=== PATIENT | male | born 1930 | race Caucasian/White ===

== ENCOUNTER 2016-04-16 14:11 | Observation (INO) | payer OTHER ==
[~2016-04-16] VITALS: Ht 177.8 cm; Wt 86.0 kg
[~2016-04-16 14:11] MED LIST: AMBIEN CR12.5 MG PO; ASPIRIN81 M2 PO; CARDURA4 MG PO; CORTIZONE-10 PL57 GM TP; COUMADIN5 MG PO; DAILY VITAMIN1 EAC8 PO; DOXAZOSIN MESYLA4 MG PO; FINASTERIDE5 MG PO; FLUORITAB1 MG PO; IRON18 MG PO; IRON325 M1 PO; MEDROL DOSEPAK4 MG PO; MULTIVITAMIN1 EAC2 PO; PROSCAR5 MG PO; VITAMIN D1000 UNIT PO; WARFARIN SODIU7.5 MG PO; WARFARIN SODIUM5 MG PO; ZOLOFT100 MG PO; ZOLOFT50 MG PO; ZYRTEC10 M2 PO
[2016-04-16 16:44] LABS: EOSINOPHIL (%) 1.4 % (0-5); EOSINOPHIL COUNT 0.1 K/uL (0-0.3); HEMATOCRIT 38.1 % (38.0-50.0); IMMATURE GRANULOCYTE (%) 0.1 % (0.0-0.7); IMMATURE GRANULOCYTE COUNT 0.1 K/uL; LYMPHOCYTE COUNT 0.6 K/uL (1.0-2.8); MCH 32.3 PG (29.0-34.0); MCHC 34.4 G/DL (30.0-36.0); MCV 94.1 FL (86-99); MEAN PLAT.VOLUME 10.4 uM^3 (9.0-12.4); MONOCYTE (%) 4.3 % (3-12); MONOCYTE COUNT 0.4 K/uL (0-0.8); NEUTROPHIL (%) 86.6 % (45-76); NEUTROPHIL COUNT 7.2 K/uL (1.8-6.4); PLATELET COUNT 91 K/uL (156-360); RBC DIS.WIDTH-CV 12.9 % (11.8-14.6); RED BLOOD COUNT 4.05 M/uL (4.00-5.50); WHITE BLOOD COUNT 8.3 K/uL (4.1-10.2)
[2016-04-16 16:56] LABS: CHLORIDE 108 mEq/L (99-109); POTASSIUM 4.3 mEq/L (3.7-5.4); SODIUM 140 mEq/L (136-147)
[2016-04-16 16:59] LABS: GLUCOSE 103 mg/dL (70-99)
[2016-04-16 17:00] LABS: ANION GAP 6 MEQ/L (2-14)
[2016-04-16 17:01] LABS: TOTAL BILIRUBIN 1.1 mg/dL (0.0-1.0)
[2016-04-16 17:02] LABS: ALKALINE PHOSPHATASE 51 IU/L (3-129); GFR ESTIMATE (CALCULATED) 34 mL/min/
[2016-04-16 17:03] LABS: UREA NITROGEN (BUN) 28 mg/dL (9-23)
[2016-04-16 17:05] LABS: TROP-I INTERPRETATION NEGATIVE; TROPONIN-I 0.01 ng/mL (0.0-0.30)
[2016-04-16] MEDS ORDERED: ASPIR 8181 M1 PO (20:36)
[2016-04-16] MEDS ORDERED: ALFUZOSIN HCL10 MG PO (20:37)
[2016-04-16] MEDS ORDERED: DAILY VITAMIN1 EAC4 PO (20:37)
[2016-04-16 21:19] LABS: ADD MIUA? YES; BILIRUBIN NEGATIVE; BLOOD SMALL; COLOR YELLOW ((YELLOW)); GLUCOSE (STRIP) NEGATIVE; KETONES NEGATIVE; LEUKOCYTES SMALL; NITRITE NEGATIVE; PROTEIN (STRIP) NEGATIVE; SPECIFIC GRAVITY 1.018 (1.000-1.030); UROBILINOGEN 0.2 MG/DL (0.2-1.0)
[2016-04-16 21:33] LABS: AMORPHOUS URATES CRYSTALS FEW; BACTERIA RARE /HPF; CASTS PRESENT /LPF; CRYSTALS PRESENT; EPITHELIAL CELLS NONE SEEN /HPF; HYALINE CASTS 0-5 /LPF; MUCUS TRACE /LPF; RED BLOOD CELLS 0-5 /HPF (0-5); WHITE BLOOD CELLS 20-30 /HPF (0-5)
[2016-04-16 22:39] VITALS: BP 129/81
[2016-04-16 23:27] LABS: TROP-I INTERPRETATION NEGATIVE; TROPONIN-I 0.02 ng/mL (0.0-0.30)
[2016-04-17 00:49] LABS: INTER. NORMALIZED RATIO 2.2; PROTHROMBIN TIME 23.4 (9.2-11.2)
[2016-04-17 05:26] VITALS: BP 113/64
[2016-04-17 08:40] LABS: ALKALINE PHOSPHATASE 39 IU/L (3-129); ANION GAP 5 MEQ/L (2-14); CHLORIDE 111 MEQ/L (99-109); DIRECT BILIRUBIN 0.2 mg/dL (0.0-0.3); GFR ESTIMATE (CALCULATED) 38 mL/min/; GLUCOSE 91 mg/dL (70-99); POTASSIUM 4.8 MEQ/L (3.7-5.4); SAMPLE HEMOLYSIS CHECK 2; SAMPLE ICTERIC CHECK 0; SAMPLE LIPEMIA CHECK 0; SODIUM 138 MEQ/L (136-147); TOTAL BILIRUBIN 1.1 MG/DL (0.0-1.0); UREA NITROGEN (BUN) 22 mg/dL (9-23)
[2016-04-17 08:43] LABS: TROP-I INTERPRETATION NEGATIVE; TROPONIN-I < 0.01 ng/mL (0.0-0.30)
[2016-04-17 08:52] LABS: EOSINOPHIL (%) 2.2 % (0-5); EOSINOPHIL COUNT 0.1 K/uL (0-0.3); HEMATOCRIT 34.7 % (38.0-50.0); LYMPHOCYTE COUNT 1.1 K/uL (1.0-2.8); MCH 32.9 PG (29.0-34.0); MCHC 34.6 G/DL (30.0-36.0); MCV 95.1 FL (86-99); MEAN PLAT.VOLUME 11.4 uM^3 (9.0-12.4); MONOCYTE (%) 6.5 % (3-12); MONOCYTE COUNT 0.3 K/uL (0-0.8); NEUTROPHIL (%) 69.9 % (45-76); NEUTROPHIL COUNT 3.6 K/uL (1.8-6.4); PLATELET COUNT 78 K/uL (156-360); RBC DIS.WIDTH-CV 13.2 % (11.8-14.6); RBC DIS.WIDTH-SD 45.9 % (39-53); RED BLOOD COUNT 3.65 M/uL (4.00-5.50)
[2016-04-17 08:55] LABS: WHITE BLOOD COUNT 5.1 K/uL (4.1-10.2)
[2016-04-17 09:38] VITALS: BP 98/55
[2016-04-17 12:00] VITALS: BP 142/73
[2016-04-17 14:37] LABS: INTER. NORMALIZED RATIO 2.7; PROTHROMBIN TIME 28.1 (9.2-11.2)
[2016-04-17 16:19] VITALS: BP 1309/72
[2016-04-17 19:00] VITALS: BP 146/73
[2016-04-18 00:03] VITALS: BP 146/77
[2016-04-18 04:17] VITALS: BP 107/58
[2016-04-18 07:17] LABS: INTER. NORMALIZED RATIO 2.9; PROTHROMBIN TIME 30.5 (9.2-11.2)
[2016-04-18] MEDS ORDERED: COUMADIN2 MG PO (09:22)
[2016-04-18 09:27] VITALS: BP 137/77
[2016-04-18 10:30] LABS: HEMATOCRIT 36.8 % (38.0-50.0); MCH 32.6 PG (29.0-34.0); MCHC 34.5 G/DL (30.0-36.0); MCV 94.6 FL (86-99); MEAN PLAT.VOLUME 11.8 uM^3 (9.0-12.4); PLATELET COUNT 97 K/uL (156-360); RBC DIS.WIDTH-SD 44.9 % (39-53); RED BLOOD COUNT 3.89 M/uL (4.00-5.50); WHITE BLOOD COUNT 6.2 K/uL (4.1-10.2)
[2016-04-18 10:53] LABS: ALKALINE PHOSPHATASE 36 IU/L (3-129); ANION GAP 7 MEQ/L (2-14); CHLORIDE 108 MEQ/L (99-109); GFR ESTIMATE (CALCULATED) 41 mL/min/; SAMPLE HEMOLYSIS CHECK 0; SAMPLE ICTERIC CHECK 0; SAMPLE LIPEMIA CHECK 0; SODIUM 140 MEQ/L (136-147); UREA NITROGEN (BUN) 24 mg/dL (9-23)
[2016-04-18 11:57] LABS: GLUCOSE 114 mg/dL (70-99); TOTAL BILIRUBIN 0.6 MG/DL (0.0-1.0)
[2016-04-18 12:43] VITALS: BP 142/76
[2016-04-18] MEDS ORDERED: CIPRO250 MG PO (12:59)
== END 2016-04-18 15:52 | disposition home or self-care (01) ==
LOC: EME → EDBD 14:11 → EME 14:11 → EDOF 20:46 → 5WEST 20:46 → EDOF 20:46 → 5WEST 22:09
PROVIDERS: Emergency Medicine; Hospitalist; Internal Medicine; Physician Assistant
DX: E86.0 Dehydration (principal); R55 Syncope and collapse; N39.0 Urinary tract infection, site not specified; N18.3 Chronic kidney disease, stage 3 (moderate); D69.6 Thrombocytopenia, unspecified; Z86.711 Personal history of pulmonary embolism; R53.1 Weakness; R26.81 Unsteadiness on feet; Z87.891 Personal history of nicotine dependence; Z79.01 Long term (current) use of anticoagulants; Z79.82 Long term (current) use of aspirin
CPT/HCPCS: 70450; 71010; 80048; 80053; 80076; 81003; 84484; 85025; 85027; 85610; 93005; 99281; 99285; G0378; J0696; J7030; J7050

== ENCOUNTER 2016-10-05 17:08 | Emergency (ER) | payer OTHER ==
[~2016-10-05] VITALS: Ht 177.8 cm; Wt 83.3 kg
[~2016-10-05 17:08] MED LIST changes: +ALFUZOSIN HCL10 MG PO; +ASPIR 8181 M1 PO; +CIPRO250 MG PO; +COUMADIN2 MG PO; +DAILY VITAMIN1 EAC4 PO
[2016-10-05 19:23] LABS: HEMATOCRIT 40.6 % (38.0-50.0); MCH 32.3 PG (29.0-34.0); MCV 92.3 FL (86-99); MEAN PLAT.VOLUME 11.3 uM^3 (9.0-12.4); PLATELET COUNT 116 K/uL (156-360); RBC DIS.WIDTH-SD 43.3 % (39-53); WHITE BLOOD COUNT 7.5 K/uL (4.1-10.2)
[2016-10-05 19:25] LABS: CARBON DIOXIDE (BICARBONATE) 30.2 MEQ/L (20-31)
[2016-10-05 19:31] LABS: D-DIMER ELISA < 150.00 ng/mLDDU (<230)
[2016-10-05 19:35] LABS: CHLORIDE 107 mEq/L (99-109); SODIUM 142 mEq/L (136-147)
[2016-10-05 19:37] LABS: GLUCOSE 125 mg/dL (70-99)
[2016-10-05 19:39] LABS: ANION GAP 9 MEQ/L (2-14)
[2016-10-05 19:41] LABS: GFR ESTIMATE (CALCULATED) 34 mL/min/
[2016-10-05 19:42] LABS: UREA NITROGEN (BUN) 18 mg/dL (9-23)
[2016-10-05 19:45] LABS: TROP-I INTERPRETATION NEGATIVE; TROPONIN-I < 0.01 ng/mL (0.0-0.30)
[2016-10-05] MEDS ORDERED: PROVENTIL HFA6.7 GM IH (21:32)
[2016-10-05] MEDS ORDERED: PREDNISONE20 MG PO (21:32)
[2016-10-05 22:44] VITALS: BP 151/84
== END 2016-10-05 22:45 | disposition home or self-care (01) ==
LOC: EME 17:08
PROVIDERS: Emergency Medicine
DX: J45.909 Unspecified asthma, uncomplicated (principal); G47.30 Sleep apnea, unspecified; K21.9 Gastro-esophageal reflux disease without esophagitis; Z86.711 Personal history of pulmonary embolism; Z87.442 Personal history of urinary calculi; Z85.038 Personal history of other malignant neoplasm of large intestine; Z79.82 Long term (current) use of aspirin; Z79.01 Long term (current) use of anticoagulants; Z87.891 Personal history of nicotine dependence
CPT/HCPCS: 71020; 80048; 82803; 83605; 83880; 84484; 85027; 85379; 87040; 93005; 94640; 99281; 99284; J7512

== ENCOUNTER 2016-10-23 21:05 | Emergency (ER) | payer OTHER ==
[~2016-10-23] VITALS: Ht 172.7 cm; Wt 83.3 kg
[~2016-10-23 21:05] MED LIST changes: +PREDNISONE20 MG PO; +PROVENTIL HFA6.7 GM IH
[2016-10-23 23:05] LABS: ADD MIUA? YES; BILIRUBIN NEGATIVE; BLOOD LARGE; GLUCOSE (STRIP) 50; KETONES NEGATIVE; LEUKOCYTES NEGATIVE; NITRITE NEGATIVE; PROTEIN (STRIP) 100; UROBILINOGEN 0.2 MG/DL (0.2-1.0)
[2016-10-23 23:07] LABS: COLOR RED ((YELLOW))
[2016-10-23 23:08] LABS: RED BLOOD CELLS TNTC /HPF (0-5); UCUL ADDED? YES
[2016-10-24] LABS: CHLORIDE 109 mEq/L (99-109); POTASSIUM 4.3 mEq/L (3.7-5.4); SODIUM 142 mEq/L (136-147)
[2016-10-24 00:02] LABS: GLUCOSE 105 mg/dL (70-99)
[2016-10-24 00:03] LABS: ANION GAP 9 MEQ/L (2-14)
[2016-10-24 00:06] LABS: GFR ESTIMATE (CALCULATED) 36 mL/min/
[2016-10-24 00:07] LABS: UREA NITROGEN (BUN) 19 mg/dL (9-23)
[2016-10-24 00:16] LABS: HEMATOCRIT 35.1 % (38.0-50.0); MCH 32.4 PG (29.0-34.0); MCHC 34.8 G/DL (30.0-36.0); MCV 93.4 FL (86-99); RBC DIS.WIDTH-CV 13.2 % (11.8-14.6); RED BLOOD COUNT 3.76 M/uL (4.00-5.50); WHITE BLOOD COUNT 8.4 K/uL (4.1-10.2)
[2016-10-24 00:58] LABS: PLAT.SUFFICIENCY DECREASED; PLATELET CLUMPS PRESENT - PLATELET COUNTS APPEARS DECREASED
[2016-10-24] MEDS ORDERED: KEFLEX500 MG PO (01:32)
[2016-10-24 02:31] VITALS: BP 145/84
== END 2016-10-24 02:31 | disposition home or self-care (01) ==
LOC: EME 21:05
PROVIDERS: Emergency Medicine
DX: N39.0 Urinary tract infection, site not specified (principal); N28.9 Disorder of kidney and ureter, unspecified; N40.0 Benign prostatic hyperplasia without lower urinary tract symptoms; Z87.442 Personal history of urinary calculi; Z79.01 Long term (current) use of anticoagulants; Z85.038 Personal history of other malignant neoplasm of large intestine; Z87.891 Personal history of nicotine dependence
CPT/HCPCS: 80048; 81003; 85027; 87086; 99281; 99285

== ENCOUNTER 2016-10-24 05:23 | Emergency (ER) | payer OTHER ==
[~2016-10-24] VITALS: Ht 177.8 cm; Wt 89.1 kg
[~2016-10-24 05:23] MED LIST changes: +KEFLEX500 MG PO
[2016-10-24 08:49] LABS: EOSINOPHIL (%) 1.7 % (0-5); EOSINOPHIL COUNT 0.2 K/uL (0-0.3); HEMATOCRIT 40.7 % (38.0-50.0); IMMATURE GRANULOCYTE (%) 0.3 % (0.0-0.7); INSTRUMENT ABS NEUTROPHIL CT 7.8 K/uL; LYMPHOCYTE COUNT 1.7 K/uL (1.0-2.8); MCH 31.9 PG (29.0-34.0); MCHC 34.2 G/DL (30.0-36.0); MCV 93.3 FL (86-99); MEAN PLAT.VOLUME 10.9 uM^3 (9.0-12.4); MONOCYTE (%) 6.8 % (3-12); MONOCYTE COUNT 0.7 K/uL (0-0.8); NEUTROPHIL (%) 74.4 % (45-76); NEUTROPHIL COUNT 7.8 K/uL (1.8-6.4); PLATELET COUNT 92 K/uL (156-360); RED BLOOD COUNT 4.36 M/uL (4.00-5.50); WHITE BLOOD COUNT 10.5 K/uL (4.1-10.2)
[2016-10-24 08:55] LABS: INTER. NORMALIZED RATIO 2.4; PROTHROMBIN TIME 27.3 SEC (10.2-12.9)
[2016-10-24 08:58] LABS: PTT 38.8 SEC (25-37)
[2016-10-24 15:09] VITALS: BP 145/74
== END 2016-10-24 15:12 | disposition home or self-care (01) ==
LOC: EME 05:23
PROVIDERS: Emergency Medicine
PROC: 3E1K78Z Irrigation of Genitourinary Tract using Irrigating Substance, Via Natural or Artificial Opening (ICD-10-PCS; principal; 2016-10-24)
DX: T83.098A Other mechanical complication of other urinary catheter, initial encounter (principal); R33.9 Retention of urine, unspecified; R31.9 Hematuria, unspecified; Z79.01 Long term (current) use of anticoagulants; Z79.82 Long term (current) use of aspirin; Z86.711 Personal history of pulmonary embolism; Z85.038 Personal history of other malignant neoplasm of large intestine; Z87.442 Personal history of urinary calculi; Z87.891 Personal history of nicotine dependence
CPT/HCPCS: 85025; 85610; 85730; 99281; 99285